=== PATIENT | female | born 1990 | race Caucasian/White ===

== ENCOUNTER 2020-09-11 19:50 | Inpatient (IN) | payer SELFPAY ==
[2020-09-11 20:00] VITALS: RESP 18
[2020-09-11] MEDS: OLANZapine 5 mg ODT PO (20:14)
[2020-09-11] MEDS: nicotine 2 mg Gum BUCCAL (20:14)
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
[2020-09-11 22:00] VITALS: RESP 21
--- NOTE | 2020-09-12 02:53 | PC.NURSE ---
Patient arrived to unit agitated and upset with staff that we would not let her go out and smoke one cigarette. Patient was not directable and refused PRN medication until she seen the doctor. Patient hit head up against the wall and this nurse attempted deescalation with patient without success. Physician notified then came to do a face to face with patient.
[2020-09-12 06:00] VITALS: BP 97/60; PULSE 114; RESP 19; TEMP 36.7; O2SAT 95
--- NOTE | 2020-09-12 06:21 | PC.NURSE ---
Patients jewelry was received by nursing and labeled and placed in NPU safe. Patient was unable to remove ring off middle finger right hand.
[2020-09-12] MEDS: ARIPiprazole 10 mg Tablet 5 MG PO (08:17)
[2020-09-12 14:00] VITALS: BP 108/74; PULSE 87; RESP 16; TEMP 36.5; O2SAT 96
--- NOTE | 2020-09-12 15:27 | PM.NPN ---
Subjective NPU Subjective: Interval history: I met with the patient in her room and she was initially pleasant, but became quite irritated when she learned that we would not discharge her without an adequate discharge plan. She says that she is doing okay, and her mood is better. She says she slept and ate okay. Her energy level is adequate as well. When asked about her future, she says she has stuff to work on, but she feels all right about her prospects. She denies auditory visual hallucinations. She denies suicidal and homicidal ideation. She denies medication side effects. I reviewed her urine drug screen with her, which was positive for amphetamines, marijuana, and oxycodone. She said that she smokes marijuana daily to even her self out. She said that there was a libertarian over the weekend and she might have used something. She denies having taken any opiates recently. She says she is thirsty, but otherwise her review of systems is negative. The patient says that she has talked with her and that he is fine for her to return home today. When the licensed clinical social worker called to talk to him, the story was different. He wanted her to remain in the hospital and get the help he feels she needs. I let the patient know that she needs to have a set discharge plan before we can consider releasing her. The level of anger she exhibited with this news is evidence that she requires further hospital treatment. Mental Status Exam MSE Comments: I met with the patient in her room and then talked with her in the hallway. She was only minimally cooperative. She had psychomotor agitation and speech was rapid. She was alert and oriented to person and situation. Attention was intact, and memory was adequate for the interview. Mood is irritable and affect reflects her mood. Her thought process is perseverative on leaving the hospital. Thought content: She denies auditory visual hallucinations. She denies suicidal and homicidal ideation. There are no delusions noted. Insight and judgment are limited. Vitals/I&O/Wt Last Vital Signs Temp 97.7 F 09/12/20 14:00 Pulse 87 09/12/20 14:00 Resp 16 09/12/20 14:00 BP 108/74 09/12/20 14:00 Pulse Ox 96 09/12/20 14:00 Weight last 48 hrs Weight 52.2 kg A&P Assessment and plan (1) Major depressive disorder, recurrent severe without psychotic features: Status: Acute (2) Cluster B personality disorder in adult: Status: Suspected (3) Opiate abuse, continuous: Status: Acute (4) Cannabis abuse: Status: Acute (5) Methamphetamine abuse: Status: Acute Additional A&P Information The patient is a 29-year-old white female with recent suicide attempts or gestures, who is highly emotional and dramatic. She has a history of substance use, including a positive UDS for oxycodone, amphetamines, and cannabinoids. 1. Continue current medication. Abilify 5 mg daily. 2. Continue every 15 minute checks for safety. 3. Encourage individual, group and milieu therapies. 4. Encourage sober living treatment after discharge at the highest level of care to which he is willing to commit. 5. Patient will be placed on a 96-hour hold due to risk of danger to self and desire to leave the hospital. Involuntary Hold Information 96 Hour Hold: 96 Hour Involuntary Admission: Yes Attestations NPU Medical Necessity Statement*: Psychiatric hospitalization, to reevaluate medication, and to coordinate a safe discharge. Likely length of stay is 2 to 4 days. Coding Level of Care Code Acute Wholesale And Retail Merchant for Nabila Palomares Diagnoses Major depressive disorder, recurrent severe without psychotic features F33.2 Cluster B personality disorder in adult F60.9 Opiate abuse, continuous F11.10 Cannabis abuse F12.10 Methamphetamine abuse F15.10
[2020-09-12] MEDS: nicotine 2 mg Gum BUCCAL (19:52)
[2020-09-12] MEDS: trazodone 50 mg Tablet PO (20:36)
[2020-09-12] MEDS: hyDROXYzine 25 mg Capsule 50 MG PO (20:36)
--- NOTE | 2020-09-12 20:40 | PC.NURSE ---
pt requested sleep and anxiety meds. Trazodone 50mg po given for sleep and Vistaril 50mg po given for anxiety.
[2020-09-12 20:51] VITALS: BP 105/69; PULSE 97; RESP 17; TEMP 37.1; O2SAT 98
--- NOTE | 2020-09-12 21:30 | PC.NURSE ---
pt resting quietly with both eyes closed.
[2020-09-13 06:00] VITALS: BP 112/67; PULSE 67; RESP 17; TEMP 35.9; O2SAT 98
[2020-09-13] MEDS: ARIPiprazole 10 mg Tablet 5 MG PO (08:00)
[2020-09-13 12:04] VITALS: BP 112/67; PULSE 67; RESP 17; TEMP 35.9; O2SAT 98
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
== END 2020-09-13 13:45 | disposition home or self-care (01) | DRG 885 ==
PROVIDERS: Admitting Provider Psychiatry & Neurology Child & Adolescent Psychiatry; Visit Provider Psychiatry & Neurology Child & Adolescent Psychiatry
DX: F33.2 Major depressive disorder, recurrent severe without psychotic features (principal); R45.851 Suicidal ideations; F60.89 Other specific personality disorders; F11.14 Opioid abuse with opioid-induced mood disorder; F15.14 Other stimulant abuse with stimulant-induced mood disorder; F12.10 Cannabis abuse, uncomplicated; Z63.0 Problems in relationship with spouse or partner; Z81.8 Family history of other mental and behavioral disorders